=== PATIENT | female | born 1955 | race African-American/Black ===

== ENCOUNTER 2021-12-01 19:12 | Inpatient (IN) | payer OTHER ==
[2021-12-01] MEDS ORDERED: Lorazepam 2 MG/ML VIAL ONE (20:09)
[2021-12-01] MEDS ORDERED: cefTRIAXone\\ROCEPHIN 2 GM VIAL ONE (20:10)
[2021-12-01 20:14] LABS: Magnesium 2.2 mg/dL (1.6-2.6)
[2021-12-01 20:16] LABS: #Eosinphils 0.1 10x3/uL (0.0-0.5); #Monocytes 2.2 10x3/uL (0.0-1.1); #Neutrophils 12.7 10x3/uL (1.5-8.4); %Basophils 0.2 % (0.0-2.0); %Eosinophils 0.3 % (0.0-6.0); %Lymphocytes 9.1 % (18.0-47.0); %Monocytes 13.3 % (0.0-10.0); %Neutrophils 76.5 % (40.0-75.0); Hemoglobin 14.2 g/dL (12.0-15.5); Mean Corpuscular HGB CONC 33.4 g/dL (32.0-36.0); Mean Corpuscular Hemoglobin 28.3 pg (27.0-33.0); Mean Corpuscular Volume 84.8 fl (81.6-98.3); Mean Platelet Volume 12.7 fl (7.4-10.4); Platelet Count 175 10x3/uL (150-450); RBC Distribution Width 16.2 % (11.5-14.5); Red Blood Cell (RBC) Count 5.01 10x6/uL (3.90-5.03); White Blood Cell (WBC) Count 16.6 10x3/uL (3.5-10.5)
[2021-12-01 20:17] LABS: ALT (SGPT) 13 U/L (8-55); AST (SGOT) 26 U/L (5-34); Acetaminophen Less than 10.0 mcg/mL (10.0-30.0); Albumin 3.6 g/dL (3.4-4.8); Alcohol Less than 10 mg/dL (Less than 10); Alkaline Phosphatase 76 U/L (40-110); Anion Gap 17 mmol/L (10-20); BUN (Urea Nitrogen) 30 mg/dL (9.8-20.1); Bilirubin, Total 0.7 mg/dL (0.2-1.2); Calc. Creatinine Clearance 0 mL/min (70-130); Calcium 10.1 mg/dL (7.8-10.44); Carbon Dioxide 26 mmol/L (23-31); Chloride 107 mmol/L (98-107); Estimated GFR 55; Globulin 4.8 g/dL (2.4-3.5); Glucose 150 mg/dL (80-115); Lipase 20 U/L (8-78); Potassium 4.2 mmol/L (3.5-5.1); Protein, Total 8.4 g/dL (5.8-8.1); Salicylate Less than 8.0 mg/dL (15.0-30.0); Sodium 146 mmol/L (136-145)
[2021-12-01 21:01] LABS: Bilirubin Neg (Negative); Blood, Urine 25 (Negative); Clarity Clear (Clear); Glucose, Urine (Dipstick) Normal (Negative); Ketone, Urine 15 mg/dL (Negative); Leukocyte 100 (Negative); Nitrite Positive (Negative); Protein, Urine (Dipstick) 30 mg/dl (Neg-Trace)
[2021-12-01 21:08] LABS: Amphetamine Not Detected (NotDetected); Barbiturates Screen Not Detected (NotDetected); Benzodiazepine Screen Not Detected (NotDetected); Cocaine Metabolite Screen Not Detected (NotDetected); Methadone Not Detected (NotDetected); Methamphetamine Not Detected (NotDetected); Opiate Screen Not Detected (NotDetected); Oxycodone Screen Not Detected (NotDetected); Phencyclidine (PCP) Not Detected (NotDetected); THC/Cannabinoid Screen Not Detected (NotDetected); Tricyclic Screen Not Detected (NotDetected)
[2021-12-01 21:13] LABS: RBC/HPF 0-3 HPF (0-3); Squamous Epithelial 0-3 HPF (0-3)
[2021-12-01 21:14] LABS: Bacteria/HPF 2+ HPF (None Seen)
[2021-12-01 21:52] LABS: SARS-CoV-2 NAA Rapid Test Not Detected (NotDetected)
[2021-12-01] MEDS ORDERED: Calcium Carbonate 500 MG ChewTAB PO PRN (22:26)
[2021-12-01] MEDS ORDERED: Guaifenesin DM 100-10/5 ML UDCUP PO PRN (22:26)
[2021-12-01] MEDS ORDERED: Ondansetron PF 4 MG/2 ML Vial IVP PRN (22:26)
[2021-12-01] MEDS ORDERED: Vancomycin 1 GM VIAL ONE (22:30)
[2021-12-01] MEDS ORDERED: Piperacillin/Tazobactam 3.375 GM in Sodium Chloride 0.9% 100 ML IVPB SCH (22:30)
[2021-12-01] MEDS ORDERED: Pharmacy to Dose ABX/VANCOMYCIN IVPB PRN (22:35)
[2021-12-01] MEDS ORDERED: Piperacillin/Tazobactam 3.375 GM VIAL ONE (23:35)
[2021-12-01] MEDS ORDERED: Ketorolac Tromethamine 30 MG/ML VIAL ONE (23:35)
[2021-12-02] MEDS ORDERED: Ketorolac Tromethamine 30 MG/ML VIAL IVP SCH (01:00)
[2021-12-02] MEDS ORDERED: Piperacillin/Tazobactam 3.375 GM in Sodium Chloride 0.9% 100 ML IVPB SCH (01:00)
[2021-12-02] MEDS ORDERED: Lactated Ringer's 1,000 ML IV SCH ×2 (01:00→14:20)
[2021-12-02] MEDS: Lactated Ringer's 1,000 ML IV SCH ×2 (02:30→10:35)
[2021-12-02 05:34] LABS: Hemoglobin 11.1 g/dL (12.0-15.5); Mean Corpuscular HGB CONC 32.9 g/dL (32.0-36.0); Mean Corpuscular Hemoglobin 27.7 pg (27.0-33.0); Mean Platelet Volume 12.2 fl (7.4-10.4); Platelet Count 130 10x3/uL (150-450); RBC Distribution Width 15.9 % (11.5-14.5); Red Blood Cell (RBC) Count 4.01 10x6/uL (3.90-5.03); White Blood Cell (WBC) Count 16.8 10x3/uL (3.5-10.5)
[2021-12-02 05:37] LABS: Lactic Acid 1.4 mmol/L (0.5-2.2)
[2021-12-02 05:48] LABS: Anion Gap 14 mmol/L (10-20); BUN (Urea Nitrogen) 30 mg/dL (9.8-20.1); CK (CPK) 851 U/L (29-168); Calc. Creatinine Clearance 0 mL/min (70-130); Calcium 8.6 mg/dL (7.8-10.44); Carbon Dioxide 23 mmol/L (23-31); Chloride 114 mmol/L (98-107); Estimated GFR 75; Glucose 138 mg/dL (80-115); Potassium 3.8 mmol/L (3.5-5.1); Sodium 147 mmol/L (136-145)
[2021-12-02] MEDS ORDERED: Piperacillin/Tazobactam 3.375 GM VIAL ONE (05:56)
[2021-12-02 05:57] LABS: Free T4 (Free Thyroxine) 0.55 ng/dL (0.70-1.48)
[2021-12-02] MEDS: Piperacillin/Tazobactam 3.375 GM in Sodium Chloride 0.9% 100 ML IVPB SCH ×3 (06:10→22:13)
[2021-12-02 06:42] LABS: MDiff Complete? YES; Platelet Morphology Comment Appears Decreased
[2021-12-02 06:50] LABS: Band 7 % (5-11); Lymphocytes 8 % (21-51); Metamyelocyte 2 % (0-0); Monocytes 12 % (0-10); Neutrophil 71 % (42-75)
[2021-12-02] MEDS ORDERED: OLANZapine 5 MG TAB PO SCH (09:00)
[2021-12-02] MEDS ORDERED: Divalproex Sodium 250 MG (DR) TAB PO SCH (09:00)
[2021-12-02] MEDS ORDERED: Senokot S 8.6-50 MG TAB PO SCH (09:00)
[2021-12-02] MEDS: Enoxaparin Sodium 40 MG/0.4 ML SYRINGE SC SCH (09:48)
[2021-12-02] MEDS: Vancomycin HCl 750 MG in Sodium Chloride 0.9% 250 ML 250 ML IVPB SCH ×2 (09:48→22:24)
[2021-12-02 10:05] VITALS: BMI 22.4
[2021-12-02] MEDS ORDERED: cloNIDine 0.1mg/24 Hour PATCH TD SCH (12:00)
[2021-12-02] MEDS: OLANZapine 2.5 MG TAB PO SCH (15:04)
[2021-12-02] MEDS: Docusate 100 MG CAP PO SCH (22:15)
[2021-12-02] MEDS: Methimazole 5 MG TAB PO SCH (22:16)
[2021-12-02] MEDS: OLANZapine 5 MG TAB PO SCH (22:16)
[2021-12-03] MEDS: Piperacillin/Tazobactam 3.375 GM in Sodium Chloride 0.9% 100 ML IVPB SCH ×3 (05:39→21:26)
[2021-12-03 06:19] LABS: #Monocytes 1.4 10x3/uL (0.0-1.1); #Neutrophils 9.1 10x3/uL (1.5-8.4); %Basophils 0.3 % (0.0-2.0); %Eosinophils 0.1 % (0.0-6.0); %Monocytes 11.7 % (0.0-10.0); %Neutrophils 75.6 % (40.0-75.0); Hemoglobin 10.3 g/dL (12.0-15.5); Mean Corpuscular HGB CONC 32.8 g/dL (32.0-36.0); Mean Corpuscular Hemoglobin 27.8 pg (27.0-33.0); Mean Corpuscular Volume 84.9 fl (81.6-98.3); Mean Platelet Volume 10.9 fl (7.4-10.4); Platelet Count 142 10x3/uL (150-450); RBC Distribution Width 15.9 % (11.5-14.5); White Blood Cell (WBC) Count 12.1 10x3/uL (3.5-10.5)
[2021-12-03 06:39] LABS: Anion Gap 12 mmol/L (10-20); BUN (Urea Nitrogen) 27 mg/dL (9.8-20.1); Calc. Creatinine Clearance 75 mL/min (70-130); Calcium 8.7 mg/dL (7.8-10.44); Carbon Dioxide 24 mmol/L (23-31); Chloride 118 mmol/L (98-107); Estimated GFR 92; Glucose 72 mg/dL (80-115); Potassium 3.6 mmol/L (3.5-5.1); Sodium 150 mmol/L (136-145)
[2021-12-03] MEDS: Dextrose 5 %-0.45 % NaCl 1,000 ML IV SCH (06:56)
[2021-12-03] MEDS: Enoxaparin Sodium 40 MG/0.4 ML SYRINGE SC SCH (08:49)
[2021-12-03] MEDS: Docusate 100 MG CAP PO SCH ×2 (08:50→20:39)
[2021-12-03] MEDS: OLANZapine 2.5 MG TAB PO SCH ×2 (08:50→14:28)
[2021-12-03] MEDS: Ascorbic Acid 500 mg Chewable Tablet PO SCH (08:50)
[2021-12-03] MEDS: Ferrous Sulfate 325 MG TAB PO SCH (08:50)
[2021-12-03] MEDS ORDERED: NIFEdipine XL 60 MG TAB PO SCH (09:00)
[2021-12-03 09:09] LABS: Vancomycin, Trough 13.7 ug/mL
[2021-12-03] MEDS ORDERED: Vancomycin HCl 1 GM in Sodium Chloride 0.9% 250 ML 250 ML IVPB SCH (10:00)
[2021-12-03] MEDS: Methimazole 5 MG TAB PO SCH ×2 (12:50→20:39)
[2021-12-03] MEDS: OLANZapine 5 MG TAB PO SCH (20:40)
[2021-12-04] MEDS: Dextrose 5 %-0.45 % NaCl 1,000 ML IV SCH (02:29)
[2021-12-04 05:52] LABS: Anion Gap 11 mmol/L (10-20); BUN (Urea Nitrogen) 16 mg/dL (9.8-20.1); Calc. Creatinine Clearance 77 mL/min (70-130); Calcium 8.3 mg/dL (7.8-10.44); Carbon Dioxide 24 mmol/L (23-31); Chloride 117 mmol/L (98-107); Estimated GFR 95; Glucose 88 mg/dL (80-115); Magnesium 1.8 mg/dL (1.6-2.6); Potassium 3.5 mmol/L (3.5-5.1); Sodium 148 mmol/L (136-145)
[2021-12-04 06:04] LABS: #Basophils 0.1 10x3/uL (0.0-0.2); #Eosinphils 0.1 10x3/uL (0.0-0.5); #Monocytes 0.9 10x3/uL (0.0-1.1); #Neutrophils 4.1 10x3/uL (1.5-8.4); %Basophils 0.8 % (0.0-2.0); %Eosinophils 0.9 % (0.0-6.0); %Lymphocytes 19.6 % (18.0-47.0); %Monocytes 13.9 % (0.0-10.0); %Neutrophils 64.2 % (40.0-75.0); Hemoglobin 9.9 g/dL (12.0-15.5); Mean Corpuscular HGB CONC 33.4 g/dL (32.0-36.0); Mean Corpuscular Hemoglobin 28.3 pg (27.0-33.0); Mean Corpuscular Volume 84.6 fl (81.6-98.3); Mean Platelet Volume 11.6 fl (7.4-10.4); Platelet Count 165 10x3/uL (150-450); RBC Distribution Width 15.7 % (11.5-14.5); White Blood Cell (WBC) Count 6.3 10x3/uL (3.5-10.5)
[2021-12-04] MEDS: Piperacillin/Tazobactam 3.375 GM in Sodium Chloride 0.9% 100 ML IVPB SCH ×3 (06:05→22:36)
[2021-12-04] MEDS: Methimazole 5 MG TAB PO SCH ×2 (08:03→20:47)
[2021-12-04] MEDS: Ferrous Sulfate 325 MG TAB PO SCH (08:04)
[2021-12-04] MEDS: Ascorbic Acid 500 mg Chewable Tablet PO SCH (08:04)
[2021-12-04] MEDS: Docusate 100 MG CAP PO SCH ×2 (08:04→20:47)
[2021-12-04] MEDS: OLANZapine 2.5 MG TAB PO SCH ×2 (08:04→13:37)
[2021-12-04] MEDS: Enoxaparin Sodium 40 MG/0.4 ML SYRINGE SC SCH (08:04)
[2021-12-04] MEDS ORDERED: NIFEdipine XL 30 MG TAB PO SCH (13:15)
[2021-12-04] MEDS: OLANZapine 5 MG TAB PO SCH (20:47)
[2021-12-05] MEDS: Dextrose 5 %-0.45 % NaCl 1,000 ML IV SCH (02:13)
[2021-12-05] MEDS: Piperacillin/Tazobactam 3.375 GM in Sodium Chloride 0.9% 100 ML IVPB SCH ×3 (05:21→21:13)
[2021-12-05 07:59] LABS: Anion Gap 14 mmol/L (10-20); BUN (Urea Nitrogen) 9 mg/dL (9.8-20.1); Calc. Creatinine Clearance 77 mL/min (70-130); Calcium 8.6 mg/dL (7.8-10.44); Carbon Dioxide 23 mmol/L (23-31); Chloride 109 mmol/L (98-107); Estimated GFR 95; Glucose 82 mg/dL (80-115); Magnesium 1.7 mg/dL (1.6-2.6); Potassium 3.8 mmol/L (3.5-5.1); Sodium 142 mmol/L (136-145)
[2021-12-05] MEDS ORDERED: NIFEdipine XL 60 MG TAB PO SCH (09:00)
[2021-12-05] MEDS: Methimazole 5 MG TAB PO SCH ×2 (09:10→21:12)
[2021-12-05] MEDS: NIFEdipine XL 30 MG TAB PO SCH (09:10)
[2021-12-05] MEDS: Ascorbic Acid 500 mg Chewable Tablet PO SCH (09:10)
[2021-12-05] MEDS: Docusate 100 MG CAP PO SCH ×2 (09:10→21:12)
[2021-12-05] MEDS: OLANZapine 2.5 MG TAB PO SCH ×2 (09:11→14:22)
[2021-12-05] MEDS: Ferrous Sulfate 325 MG TAB PO SCH (09:11)
[2021-12-05] MEDS: Enoxaparin Sodium 40 MG/0.4 ML SYRINGE SC SCH (09:11)
[2021-12-05] MEDS: OLANZapine 5 MG TAB PO SCH (21:13)
[2021-12-06] MEDS: Piperacillin/Tazobactam 3.375 GM in Sodium Chloride 0.9% 100 ML IVPB SCH ×3 (05:12→21:35)
[2021-12-06 06:20] LABS: Anion Gap 13 mmol/L (10-20); BUN (Urea Nitrogen) 11 mg/dL (9.8-20.1); Calc. Creatinine Clearance 70 mL/min (70-130); Calcium 8.7 mg/dL (7.8-10.44); Carbon Dioxide 26 mmol/L (23-31); Chloride 109 mmol/L (98-107); Estimated GFR 85; Glucose 71 mg/dL (80-115); Magnesium 1.9 mg/dL (1.6-2.6); Sodium 144 mmol/L (136-145)
[2021-12-06] MEDS: OLANZapine 2.5 MG TAB PO SCH ×2 (11:41→13:35)
[2021-12-06] MEDS: Enoxaparin Sodium 40 MG/0.4 ML SYRINGE SC SCH (11:43)
[2021-12-06] MEDS: Methimazole 5 MG TAB PO SCH ×2 (11:43→22:23)
[2021-12-06] MEDS: Ascorbic Acid 500 mg Chewable Tablet PO SCH (11:44)
[2021-12-06] MEDS: Ferrous Sulfate 325 MG TAB PO SCH (11:44)
[2021-12-06] MEDS: NIFEdipine XL 30 MG TAB PO SCH (11:54)
[2021-12-06] MEDS ORDERED: Polyethylene Glycol 3350 17 GM Packet PO SCH (12:00)
[2021-12-06] MEDS ORDERED: Valproate Sodium 250 mg/5 ml UD Cup PO SCH (12:00)
[2021-12-06] MEDS ORDERED: Amlodipine 5 MG TAB PO SCH (12:00)
[2021-12-06] MEDS: Docusate 100 MG CAP PO SCH (13:03)
[2021-12-06] MEDS: Valproate Sodium 250 mg/5 ml UD Cup PO SCH (21:36)
[2021-12-06] MEDS: OLANZapine 5 MG TAB PO SCH (21:36)
[2021-12-07] MEDS: Piperacillin/Tazobactam 3.375 GM in Sodium Chloride 0.9% 100 ML IVPB SCH ×3 (05:18→22:26)
[2021-12-07 06:07] LABS: Anion Gap 13 mmol/L (10-20); BUN (Urea Nitrogen) 10 mg/dL (9.8-20.1); Calc. Creatinine Clearance 66 mL/min (70-130); Calcium 8.9 mg/dL (7.8-10.44); Carbon Dioxide 27 mmol/L (23-31); Chloride 108 mmol/L (98-107); Estimated GFR 79; Glucose 71 mg/dL (80-115); Magnesium 2.7 mg/dL (1.6-2.6); Sodium 144 mmol/L (136-145)
[2021-12-07] MEDS: Ascorbic Acid 500 mg Chewable Tablet PO SCH (09:05)
[2021-12-07] MEDS: Ferrous Sulfate 325 MG TAB PO SCH (09:05)
[2021-12-07] MEDS: OLANZapine 2.5 MG TAB PO SCH ×2 (09:05→14:05)
[2021-12-07] MEDS: Methimazole 5 MG TAB PO SCH ×2 (09:05→20:47)
[2021-12-07] MEDS: Amlodipine 5 MG TAB PO SCH (09:06)
[2021-12-07] MEDS: Polyethylene Glycol 3350 17 GM Packet PO SCH (09:07)
[2021-12-07] MEDS: Enoxaparin Sodium 40 MG/0.4 ML SYRINGE SC SCH (09:07)
[2021-12-07] MEDS: Valproate Sodium 250 mg/5 ml UD Cup PO SCH ×2 (09:07→20:47)
[2021-12-07] MEDS: OLANZapine 5 MG TAB PO SCH (20:47)
[2021-12-08 04:27] LABS: Hemoglobin 10.6 g/dL (12.0-15.5); Mean Corpuscular HGB CONC 33.5 g/dL (32.0-36.0); Mean Corpuscular Hemoglobin 28.2 pg (27.0-33.0); Platelet Count 256 10x3/uL (150-450); RBC Distribution Width 15.8 % (11.5-14.5); Red Blood Cell (RBC) Count 3.76 10x6/uL (3.90-5.03); White Blood Cell (WBC) Count 5.7 10x3/uL (3.5-10.5)
[2021-12-08 04:42] LABS: Anion Gap 10 mmol/L (10-20); BUN (Urea Nitrogen) 9 mg/dL (9.8-20.1); Calc. Creatinine Clearance 64 mL/min (70-130); Calcium 8.6 mg/dL (7.8-10.44); Carbon Dioxide 29 mmol/L (23-31); Chloride 107 mmol/L (98-107); Estimated GFR 75; Glucose 76 mg/dL (80-115); Magnesium 1.9 mg/dL (1.6-2.6); Potassium 4.4 mmol/L (3.5-5.1); Sodium 142 mmol/L (136-145)
[2021-12-08 05:10] LABS: MDiff Complete? YES
[2021-12-08 05:14] LABS: Band 1 % (5-11); Eosinophils 4 % (0-10); Lymphocytes 38 % (21-51); Monocytes 13 % (0-10); Myelocyte 2 % (0-0); Neutrophil 39 % (42-75); Reactive Lymphocytes 3 % (0-10)
[2021-12-08 05:15] LABS: Platelet Morphology Comment Appears Adequate; RBC Morphology Normal
[2021-12-08] MEDS: Piperacillin/Tazobactam 3.375 GM in Sodium Chloride 0.9% 100 ML IVPB SCH ×3 (06:00→21:24)
[2021-12-08] MEDS: Amlodipine 5 MG TAB PO SCH (08:16)
[2021-12-08] MEDS: Ascorbic Acid 500 mg Chewable Tablet PO SCH (08:16)
[2021-12-08] MEDS: Ferrous Sulfate 325 MG TAB PO SCH (08:16)
[2021-12-08] MEDS: Methimazole 5 MG TAB PO SCH ×2 (08:16→21:25)
[2021-12-08] MEDS: OLANZapine 2.5 MG TAB PO SCH ×2 (08:17→14:55)
[2021-12-08] MEDS: Valproate Sodium 250 mg/5 ml UD Cup PO SCH ×2 (08:17→21:25)
[2021-12-08] MEDS: Polyethylene Glycol 3350 17 GM Packet PO SCH (08:17)
[2021-12-08] MEDS: Enoxaparin Sodium 40 MG/0.4 ML SYRINGE SC SCH (08:17)
[2021-12-08] MEDS: OLANZapine 5 MG TAB PO SCH (21:25)
[2021-12-09 04:51] LABS: Anion Gap 11 mmol/L (10-20); BUN (Urea Nitrogen) 7 mg/dL (9.8-20.1); Calc. Creatinine Clearance 66 mL/min (70-130); Calcium 9.4 mg/dL (7.8-10.44); Carbon Dioxide 29 mmol/L (23-31); Chloride 106 mmol/L (98-107); Estimated GFR 79; Glucose 84 mg/dL (80-115); Magnesium 1.9 mg/dL (1.6-2.6); Potassium 4.6 mmol/L (3.5-5.1); Sodium 141 mmol/L (136-145)
[2021-12-09] MEDS: Piperacillin/Tazobactam 3.375 GM in Sodium Chloride 0.9% 100 ML IVPB SCH ×3 (06:02→21:52)
[2021-12-09] MEDS: Polyethylene Glycol 3350 17 GM Packet PO SCH (10:22)
[2021-12-09] MEDS: Enoxaparin Sodium 40 MG/0.4 ML SYRINGE SC SCH (10:23)
[2021-12-09] MEDS: Methimazole 5 MG TAB PO SCH ×2 (10:23→21:51)
[2021-12-09] MEDS: OLANZapine 2.5 MG TAB PO SCH ×2 (10:23→14:23)
[2021-12-09] MEDS: Amlodipine 5 MG TAB PO SCH (10:23)
[2021-12-09] MEDS: Ferrous Sulfate 325 MG TAB PO SCH (10:23)
[2021-12-09] MEDS: Ascorbic Acid 500 mg Chewable Tablet PO SCH (10:23)
[2021-12-09] MEDS: Valproate Sodium 250 mg/5 ml UD Cup PO SCH ×2 (10:29→21:51)
[2021-12-09] MEDS: OLANZapine 5 MG TAB PO SCH (21:51)
[2021-12-10] MEDS: Piperacillin/Tazobactam 3.375 GM in Sodium Chloride 0.9% 100 ML IVPB SCH ×3 (06:08→21:50)
[2021-12-10] MEDS: OLANZapine 2.5 MG TAB PO SCH ×2 (12:31→14:15)
[2021-12-10] MEDS: Polyethylene Glycol 3350 17 GM Packet PO SCH (12:31)
[2021-12-10] MEDS: Amlodipine 5 MG TAB PO SCH (12:31)
[2021-12-10] MEDS: Methimazole 5 MG TAB PO SCH ×2 (12:31→21:50)
[2021-12-10] MEDS: Ferrous Sulfate 325 MG TAB PO SCH (12:32)
[2021-12-10] MEDS: Ascorbic Acid 500 mg Chewable Tablet PO SCH (12:33)
[2021-12-10] MEDS: Valproate Sodium 250 mg/5 ml UD Cup PO SCH ×2 (12:33→21:49)
[2021-12-10] MEDS: Enoxaparin Sodium 40 MG/0.4 ML SYRINGE SC SCH (12:33)
[2021-12-10] MEDS: OLANZapine 5 MG TAB PO SCH (21:50)
[2021-12-11] MEDS: Piperacillin/Tazobactam 3.375 GM in Sodium Chloride 0.9% 100 ML IVPB SCH (05:25)
[2021-12-11] MEDS: Ferrous Sulfate 325 MG TAB PO SCH (11:32)
[2021-12-11] MEDS: cloNIDine 0.1mg/24 Hour PATCH TD SCH (11:32)
[2021-12-11] MEDS: OLANZapine 2.5 MG TAB PO SCH ×2 (11:32→18:21)
[2021-12-11] MEDS: Valproate Sodium 250 mg/5 ml UD Cup PO SCH ×2 (11:32→21:34)
[2021-12-11] MEDS: Amlodipine 5 MG TAB PO SCH (12:54)
[2021-12-11] MEDS: Ascorbic Acid 500 mg Chewable Tablet PO SCH (12:54)
[2021-12-11] MEDS: Methimazole 5 MG TAB PO SCH ×2 (12:55→21:19)
[2021-12-11] MEDS: Enoxaparin Sodium 40 MG/0.4 ML SYRINGE SC SCH (12:55)
[2021-12-11] MEDS: Polyethylene Glycol 3350 17 GM Packet PO SCH (12:56)
[2021-12-11] MEDS: Amoxicillin/Potassium Clav 875 MG TAB PO SCH (21:18)
[2021-12-11] MEDS: OLANZapine 5 MG TAB PO SCH (21:18)
[2021-12-12] MEDS: Enoxaparin Sodium 40 MG/0.4 ML SYRINGE SC SCH (09:53)
[2021-12-12] MEDS: Methimazole 5 MG TAB PO SCH ×2 (09:54→21:12)
[2021-12-12] MEDS: Ascorbic Acid 500 mg Chewable Tablet PO SCH (09:54)
[2021-12-12] MEDS: Ferrous Sulfate 325 MG TAB PO SCH (09:54)
[2021-12-12] MEDS: OLANZapine 2.5 MG TAB PO SCH ×2 (09:54→14:42)
[2021-12-12] MEDS: Amoxicillin/Potassium Clav 875 MG TAB PO SCH ×2 (09:54→21:12)
[2021-12-12] MEDS: Valproate Sodium 250 mg/5 ml UD Cup PO SCH ×2 (09:54→21:12)
[2021-12-12] MEDS: Amlodipine 5 MG TAB PO SCH (09:54)
[2021-12-12] MEDS: Polyethylene Glycol 3350 17 GM Packet PO SCH (09:55)
[2021-12-12] MEDS: OLANZapine 5 MG TAB PO SCH (21:11)
[2021-12-13] MEDS: Valproate Sodium 250 mg/5 ml UD Cup PO SCH ×2 (10:55→21:34)
[2021-12-13] MEDS: Acetaminophen 325 MG TAB PO PRN (10:55)
[2021-12-13] MEDS: OLANZapine 2.5 MG TAB PO SCH ×2 (10:56→13:08)
[2021-12-13] MEDS: Methimazole 5 MG TAB PO SCH ×2 (10:56→21:34)
[2021-12-13] MEDS: Enoxaparin Sodium 40 MG/0.4 ML SYRINGE SC SCH (10:56)
[2021-12-13] MEDS: Amlodipine 5 MG TAB PO SCH (10:56)
[2021-12-13] MEDS: Amoxicillin/Potassium Clav 875 MG TAB PO SCH ×2 (10:57→21:34)
[2021-12-13] MEDS: Polyethylene Glycol 3350 17 GM Packet PO SCH (10:57)
[2021-12-13] MEDS: Ferrous Sulfate 325 MG TAB PO SCH (10:57)
[2021-12-13] MEDS: Ascorbic Acid 500 mg Chewable Tablet PO SCH (10:57)
[2021-12-13] MEDS: OLANZapine 5 MG TAB PO SCH (21:34)
[2021-12-14] MEDS: Amoxicillin/Potassium Clav 875 MG TAB PO SCH ×2 (08:57→22:08)
[2021-12-14] MEDS: Polyethylene Glycol 3350 17 GM Packet PO SCH (08:57)
[2021-12-14] MEDS: Amlodipine 5 MG TAB PO SCH (08:57)
[2021-12-14] MEDS: Valproate Sodium 250 mg/5 ml UD Cup PO SCH ×2 (08:57→22:08)
[2021-12-14] MEDS: Enoxaparin Sodium 40 MG/0.4 ML SYRINGE SC SCH (08:57)
[2021-12-14] MEDS: Methimazole 5 MG TAB PO SCH ×2 (08:58→22:08)
[2021-12-14] MEDS: OLANZapine 2.5 MG TAB PO SCH ×2 (08:58→13:40)
[2021-12-14] MEDS: Acetaminophen 325 MG TAB PO PRN (08:58)
[2021-12-14] MEDS: Ascorbic Acid 500 mg Chewable Tablet PO SCH (08:58)
[2021-12-14] MEDS: Ferrous Sulfate 325 MG TAB PO SCH (08:59)
[2021-12-14] MEDS: OLANZapine 5 MG TAB PO SCH (22:08)
[2021-12-15 06:18] LABS: #Monocytes 0.5 10x3/uL (0.0-1.1); #Neutrophils 5.8 10x3/uL (1.5-8.4); %Basophils 0.4 % (0.0-2.0); %Eosinophils 0.2 % (0.0-6.0); %Lymphocytes 23.1 % (18.0-47.0); %Monocytes 5.9 % (0.0-10.0); %Neutrophils 69.9 % (40.0-75.0); Hemoglobin 12.6 g/dL (12.0-15.5); Mean Corpuscular HGB CONC 33.3 g/dL (32.0-36.0); Mean Corpuscular Hemoglobin 28.1 pg (27.0-33.0); Mean Corpuscular Volume 84.2 fl (81.6-98.3); Mean Platelet Volume 11.7 fl (7.4-10.4); Platelet Count 445 10x3/uL (150-450); RBC Distribution Width 16.4 % (11.5-14.5); Red Blood Cell (RBC) Count 4.49 10x6/uL (3.90-5.03); White Blood Cell (WBC) Count 8.4 10x3/uL (3.5-10.5)
[2021-12-15 07:29] LABS: Anion Gap 15 mmol/L (10-20); BUN (Urea Nitrogen) 19 mg/dL (9.8-20.1); Calc. Creatinine Clearance 62 mL/min (70-130); Calcium 9.7 mg/dL (7.8-10.44); Carbon Dioxide 26 mmol/L (23-31); Chloride 101 mmol/L (98-107); Estimated GFR 73; Glucose 116 mg/dL (80-115); Potassium 4.5 mmol/L (3.5-5.1); Sodium 137 mmol/L (136-145)
[2021-12-15] MEDS: Polyethylene Glycol 3350 17 GM Packet PO SCH (10:57)
[2021-12-15] MEDS: Amlodipine 5 MG TAB PO SCH (12:23)
[2021-12-15] MEDS: Amoxicillin/Potassium Clav 875 MG TAB PO SCH ×2 (12:23→21:25)
[2021-12-15] MEDS: Valproate Sodium 250 mg/5 ml UD Cup PO SCH ×2 (12:24→21:24)
[2021-12-15] MEDS: Ascorbic Acid 500 mg Chewable Tablet PO SCH (12:24)
[2021-12-15] MEDS: Methimazole 5 MG TAB PO SCH ×2 (12:24→21:25)
[2021-12-15] MEDS: Enoxaparin Sodium 40 MG/0.4 ML SYRINGE SC SCH (12:24)
[2021-12-15] MEDS: Ferrous Sulfate 325 MG TAB PO SCH (12:24)
[2021-12-15] MEDS: OLANZapine 2.5 MG TAB PO SCH ×2 (12:24→14:33)
[2021-12-15] MEDS: OLANZapine 5 MG TAB PO SCH (21:25)
[2021-12-16] MEDS: Ascorbic Acid 500 mg Chewable Tablet PO SCH (10:06)
[2021-12-16] MEDS: Enoxaparin Sodium 40 MG/0.4 ML SYRINGE SC SCH (10:06)
[2021-12-16] MEDS: Amoxicillin/Potassium Clav 875 MG TAB PO SCH ×2 (10:06→21:07)
[2021-12-16] MEDS: Amlodipine 5 MG TAB PO SCH (10:06)
[2021-12-16] MEDS: Valproate Sodium 250 mg/5 ml UD Cup PO SCH ×2 (10:07→21:11)
[2021-12-16] MEDS: OLANZapine 2.5 MG TAB PO SCH ×2 (10:07→14:03)
[2021-12-16] MEDS: Methimazole 5 MG TAB PO SCH ×2 (10:07→21:11)
[2021-12-16] MEDS: Ferrous Sulfate 325 MG TAB PO SCH (10:07)
[2021-12-16] MEDS: Polyethylene Glycol 3350 17 GM Packet PO SCH (10:07)
[2021-12-16] MEDS: OLANZapine 5 MG TAB PO SCH (21:07)
[2021-12-17] MEDS: Valproate Sodium 250 mg/5 ml UD Cup PO SCH ×2 (08:57→21:48)
[2021-12-17] MEDS: Enoxaparin Sodium 40 MG/0.4 ML SYRINGE SC SCH (08:57)
[2021-12-17] MEDS: Amoxicillin/Potassium Clav 875 MG TAB PO SCH (08:58)
[2021-12-17] MEDS: Ascorbic Acid 500 mg Chewable Tablet PO SCH (08:58)
[2021-12-17] MEDS: Methimazole 5 MG TAB PO SCH ×2 (08:58→21:46)
[2021-12-17] MEDS: OLANZapine 2.5 MG TAB PO SCH ×2 (08:58→15:30)
[2021-12-17] MEDS: Amlodipine 5 MG TAB PO SCH (08:58)
[2021-12-17] MEDS: Ferrous Sulfate 325 MG TAB PO SCH (08:59)
[2021-12-17] MEDS: Polyethylene Glycol 3350 17 GM Packet PO SCH (10:59)
[2021-12-17 13:00] LABS: SARS-CoV-2 IgG Spike Ab Interp Reactive (NonReactive)
[2021-12-17] MEDS: OLANZapine 5 MG TAB PO SCH (21:46)
[2021-12-18] MEDS: Enoxaparin Sodium 40 MG/0.4 ML SYRINGE SC SCH (11:03)
[2021-12-18] MEDS: Ascorbic Acid 500 mg Chewable Tablet PO SCH (11:03)
[2021-12-18] MEDS: Ferrous Sulfate 325 MG TAB PO SCH (11:03)
[2021-12-18] MEDS: cloNIDine 0.1mg/24 Hour PATCH TD SCH (11:04)
[2021-12-18] MEDS: Polyethylene Glycol 3350 17 GM Packet PO SCH (11:04)
[2021-12-18] MEDS: Methimazole 5 MG TAB PO SCH ×2 (11:04→21:52)
[2021-12-18] MEDS: Amlodipine 5 MG TAB PO SCH (11:05)
[2021-12-18] MEDS: Valproate Sodium 250 mg/5 ml UD Cup PO SCH ×2 (11:11→21:52)
[2021-12-18] MEDS: OLANZapine 2.5 MG TAB PO SCH ×2 (11:11→16:00)
[2021-12-18] MEDS: OLANZapine 5 MG TAB PO SCH (21:52)
[2021-12-19] MEDS: Valproate Sodium 250 mg/5 ml UD Cup PO SCH ×2 (09:21→21:47)
[2021-12-19] MEDS: Amlodipine 5 MG TAB PO SCH (09:21)
[2021-12-19] MEDS: Ferrous Sulfate 325 MG TAB PO SCH (09:21)
[2021-12-19] MEDS: Ascorbic Acid 500 mg Chewable Tablet PO SCH (09:21)
[2021-12-19] MEDS: OLANZapine 2.5 MG TAB PO SCH ×2 (09:21→14:43)
[2021-12-19] MEDS: Enoxaparin Sodium 40 MG/0.4 ML SYRINGE SC SCH (09:21)
[2021-12-19] MEDS: Polyethylene Glycol 3350 17 GM Packet PO SCH (09:22)
[2021-12-19] MEDS: Methimazole 5 MG TAB PO SCH ×2 (09:25→21:48)
[2021-12-19] MEDS: OLANZapine 5 MG TAB PO SCH (21:47)
[2021-12-20] MEDS: OLANZapine 2.5 MG TAB PO SCH ×2 (09:48→13:28)
[2021-12-20] MEDS: Methimazole 5 MG TAB PO SCH ×2 (09:51→20:05)
[2021-12-20] MEDS: Valproate Sodium 250 mg/5 ml UD Cup PO SCH ×3 (10:28→21:30)
[2021-12-20] MEDS: Polyethylene Glycol 3350 17 GM Packet PO SCH (10:29)
[2021-12-20] MEDS: Amlodipine 5 MG TAB PO SCH (10:32)
[2021-12-20] MEDS: Ferrous Sulfate 325 MG TAB PO SCH (10:32)
[2021-12-20] MEDS: Enoxaparin Sodium 40 MG/0.4 ML SYRINGE SC SCH (10:32)
[2021-12-20] MEDS: Ascorbic Acid 500 mg Chewable Tablet PO SCH (10:32)
[2021-12-20] MEDS: OLANZapine 5 MG TAB PO SCH (20:05)
[2021-12-21] MEDS: Ferrous Sulfate 325 MG TAB PO SCH (08:41)
[2021-12-21] MEDS: Ascorbic Acid 500 mg Chewable Tablet PO SCH (08:41)
[2021-12-21] MEDS: OLANZapine 2.5 MG TAB PO SCH ×2 (08:41→13:22)
[2021-12-21] MEDS: Amlodipine 5 MG TAB PO SCH (08:41)
[2021-12-21] MEDS: Polyethylene Glycol 3350 17 GM Packet PO SCH (08:42)
[2021-12-21] MEDS: Enoxaparin Sodium 40 MG/0.4 ML SYRINGE SC SCH (08:42)
[2021-12-21] MEDS: Valproate Sodium 250 mg/5 ml UD Cup PO SCH ×2 (08:43→21:23)
[2021-12-21] MEDS: Methimazole 5 MG TAB PO SCH ×2 (08:46→21:23)
[2021-12-21] MEDS: OLANZapine 5 MG TAB PO SCH (21:23)
[2021-12-22] MEDS: Ascorbic Acid 500 mg Chewable Tablet PO SCH (08:14)
[2021-12-22] MEDS: Polyethylene Glycol 3350 17 GM Packet PO SCH (08:14)
[2021-12-22] MEDS: OLANZapine 2.5 MG TAB PO SCH ×2 (08:14→14:13)
[2021-12-22] MEDS: Valproate Sodium 250 mg/5 ml UD Cup PO SCH ×2 (08:14→20:28)
[2021-12-22] MEDS: Methimazole 5 MG TAB PO SCH ×2 (08:14→20:28)
[2021-12-22] MEDS: Enoxaparin Sodium 40 MG/0.4 ML SYRINGE SC SCH (08:14)
[2021-12-22] MEDS: Ferrous Sulfate 325 MG TAB PO SCH (08:14)
[2021-12-22] MEDS: Amlodipine 5 MG TAB PO SCH (08:15)
[2021-12-22] MEDS: OLANZapine 5 MG TAB PO SCH (20:28)
[2021-12-23] MEDS: Polyethylene Glycol 3350 17 GM Packet PO SCH (10:03)
[2021-12-23] MEDS: Ferrous Sulfate 325 MG TAB PO SCH (10:03)
[2021-12-23] MEDS: Ascorbic Acid 500 mg Chewable Tablet PO SCH (10:03)
[2021-12-23] MEDS: Methimazole 5 MG TAB PO SCH ×2 (10:03→20:13)
[2021-12-23] MEDS: Enoxaparin Sodium 40 MG/0.4 ML SYRINGE SC SCH (10:03)
[2021-12-23] MEDS: OLANZapine 2.5 MG TAB PO SCH ×2 (10:03→14:01)
[2021-12-23] MEDS: Amlodipine 5 MG TAB PO SCH (10:04)
[2021-12-23] MEDS: Valproate Sodium 250 mg/5 ml UD Cup PO SCH ×2 (10:09→20:13)
[2021-12-23] MEDS: OLANZapine 5 MG TAB PO SCH (20:13)
[2021-12-24] MEDS: Enoxaparin Sodium 40 MG/0.4 ML SYRINGE SC SCH (10:12)
[2021-12-24] MEDS: Valproate Sodium 250 mg/5 ml UD Cup PO SCH ×2 (10:12→20:14)
[2021-12-24] MEDS: Methimazole 5 MG TAB PO SCH ×2 (10:12→20:14)
[2021-12-24] MEDS: Ascorbic Acid 500 mg Chewable Tablet PO SCH (10:12)
[2021-12-24] MEDS: Ferrous Sulfate 325 MG TAB PO SCH (10:12)
[2021-12-24] MEDS: Amlodipine 5 MG TAB PO SCH (10:12)
[2021-12-24] MEDS: Polyethylene Glycol 3350 17 GM Packet PO SCH (10:13)
[2021-12-24] MEDS: OLANZapine 2.5 MG TAB PO SCH ×2 (10:13→14:10)
[2021-12-24] MEDS: OLANZapine 5 MG TAB PO SCH (20:14)
[2021-12-25] MEDS: Enoxaparin Sodium 40 MG/0.4 ML SYRINGE SC SCH (10:48)
[2021-12-25] MEDS: Valproate Sodium 250 mg/5 ml UD Cup PO SCH ×2 (10:48→22:26)
[2021-12-25] MEDS: cloNIDine 0.1mg/24 Hour PATCH TD SCH (10:48)
[2021-12-25] MEDS: Polyethylene Glycol 3350 17 GM Packet PO SCH (10:49)
[2021-12-25] MEDS: OLANZapine 2.5 MG TAB PO SCH ×2 (10:50→14:53)
[2021-12-25] MEDS: Methimazole 5 MG TAB PO SCH ×2 (10:50→22:25)
[2021-12-25] MEDS: Amlodipine 5 MG TAB PO SCH (10:50)
[2021-12-25] MEDS: Ascorbic Acid 500 mg Chewable Tablet PO SCH (10:50)
[2021-12-25] MEDS: Ferrous Sulfate 325 MG TAB PO SCH (10:51)
[2021-12-25] MEDS: OLANZapine 5 MG TAB PO SCH (22:25)
[2021-12-26] MEDS: Enoxaparin Sodium 40 MG/0.4 ML SYRINGE SC SCH (11:00)
[2021-12-26] MEDS: Methimazole 5 MG TAB PO SCH ×2 (11:00→20:44)
[2021-12-26] MEDS: Ferrous Sulfate 325 MG TAB PO SCH (11:00)
[2021-12-26] MEDS: Ascorbic Acid 500 mg Chewable Tablet PO SCH (11:00)
[2021-12-26] MEDS: Amlodipine 5 MG TAB PO SCH (11:00)
[2021-12-26] MEDS: OLANZapine 2.5 MG TAB PO SCH ×2 (11:00→14:00)
[2021-12-26] MEDS: Valproate Sodium 250 mg/5 ml UD Cup PO SCH ×2 (11:00→20:47)
[2021-12-26] MEDS: Polyethylene Glycol 3350 17 GM Packet PO SCH (11:00)
[2021-12-26] MEDS: OLANZapine 5 MG TAB PO SCH (20:44)
[2021-12-27] MEDS: Valproate Sodium 250 mg/5 ml UD Cup PO SCH ×2 (08:19→20:32)
[2021-12-27] MEDS: Ferrous Sulfate 325 MG TAB PO SCH (08:20)
[2021-12-27] MEDS: OLANZapine 2.5 MG TAB PO SCH ×2 (08:20→17:04)
[2021-12-27] MEDS: Amlodipine 5 MG TAB PO SCH (08:20)
[2021-12-27] MEDS: Enoxaparin Sodium 40 MG/0.4 ML SYRINGE SC SCH (08:20)
[2021-12-27] MEDS: Ascorbic Acid 500 mg Chewable Tablet PO SCH (08:20)
[2021-12-27] MEDS: Polyethylene Glycol 3350 17 GM Packet PO SCH (08:21)
[2021-12-27] MEDS: Methimazole 5 MG TAB PO SCH ×2 (08:28→20:30)
[2021-12-27] MEDS: OLANZapine 5 MG TAB PO SCH (20:30)
[2021-12-28] MEDS: Valproate Sodium 250 mg/5 ml UD Cup PO SCH ×2 (09:03→20:33)
[2021-12-28] MEDS: OLANZapine 2.5 MG TAB PO SCH ×2 (09:03→14:43)
[2021-12-28] MEDS: Polyethylene Glycol 3350 17 GM Packet PO SCH (09:04)
[2021-12-28] MEDS: Methimazole 5 MG TAB PO SCH ×2 (09:04→20:33)
[2021-12-28] MEDS: Enoxaparin Sodium 40 MG/0.4 ML SYRINGE SC SCH (09:04)
[2021-12-28] MEDS: Ascorbic Acid 500 mg Chewable Tablet PO SCH (09:04)
[2021-12-28] MEDS: Ferrous Sulfate 325 MG TAB PO SCH (09:04)
[2021-12-28] MEDS: Amlodipine 5 MG TAB PO SCH (09:04)
[2021-12-28] MEDS: OLANZapine 5 MG TAB PO SCH (20:33)
[2021-12-29] MEDS: Enoxaparin Sodium 40 MG/0.4 ML SYRINGE SC SCH (10:42)
[2021-12-29] MEDS: Ferrous Sulfate 325 MG TAB PO SCH (10:42)
[2021-12-29] MEDS: OLANZapine 2.5 MG TAB PO SCH ×2 (10:43→14:00)
[2021-12-29] MEDS: Polyethylene Glycol 3350 17 GM Packet PO SCH (10:44)
[2021-12-29] MEDS: Ascorbic Acid 500 mg Chewable Tablet PO SCH (10:44)
[2021-12-29] MEDS: Valproate Sodium 250 mg/5 ml UD Cup PO SCH ×2 (10:44→23:04)
[2021-12-29] MEDS: Amlodipine 5 MG TAB PO SCH (10:45)
[2021-12-29] MEDS: Methimazole 5 MG TAB PO SCH ×2 (10:49→23:06)
[2021-12-29] MEDS: OLANZapine 5 MG TAB PO SCH (23:04)
[2021-12-30] MEDS: Methimazole 5 MG TAB PO SCH ×2 (10:25→22:29)
[2021-12-30] MEDS: Amlodipine 5 MG TAB PO SCH (10:25)
[2021-12-30] MEDS: Enoxaparin Sodium 40 MG/0.4 ML SYRINGE SC SCH (10:25)
[2021-12-30] MEDS: Ferrous Sulfate 325 MG TAB PO SCH (10:26)
[2021-12-30] MEDS: Polyethylene Glycol 3350 17 GM Packet PO SCH (10:26)
[2021-12-30] MEDS: Ascorbic Acid 500 mg Chewable Tablet PO SCH (10:26)
[2021-12-30] MEDS: OLANZapine 2.5 MG TAB PO SCH ×2 (10:26→14:47)
[2021-12-30] MEDS: Valproate Sodium 250 mg/5 ml UD Cup PO SCH ×2 (10:31→22:28)
[2021-12-30] MEDS: OLANZapine 5 MG TAB PO SCH (22:28)
[2021-12-31] MEDS: Enoxaparin Sodium 40 MG/0.4 ML SYRINGE SC SCH (09:51)
[2021-12-31] MEDS: Polyethylene Glycol 3350 17 GM Packet PO SCH (09:52)
[2021-12-31] MEDS: Valproate Sodium 250 mg/5 ml UD Cup PO SCH ×2 (09:52→21:58)
[2021-12-31] MEDS: Amlodipine 5 MG TAB PO SCH (09:54)
[2021-12-31] MEDS: Ferrous Sulfate 325 MG TAB PO SCH (09:54)
[2021-12-31] MEDS: OLANZapine 2.5 MG TAB PO SCH ×2 (09:55→13:06)
[2021-12-31] MEDS: Methimazole 5 MG TAB PO SCH ×2 (09:55→21:59)
[2021-12-31] MEDS: Ascorbic Acid 500 mg Chewable Tablet PO SCH (09:55)
[2021-12-31] MEDS: OLANZapine 5 MG TAB PO SCH (21:59)
[2022-01-01] MEDS: Polyethylene Glycol 3350 17 GM Packet PO SCH (08:55)
[2022-01-01] MEDS: Valproate Sodium 250 mg/5 ml UD Cup PO SCH ×2 (08:55→21:04)
[2022-01-01] MEDS: Amlodipine 5 MG TAB PO SCH (08:56)
[2022-01-01] MEDS: Ascorbic Acid 500 mg Chewable Tablet PO SCH (08:56)
[2022-01-01] MEDS: OLANZapine 2.5 MG TAB PO SCH ×2 (08:56→14:15)
[2022-01-01] MEDS: Methimazole 5 MG TAB PO SCH ×2 (08:56→21:05)
[2022-01-01] MEDS: Enoxaparin Sodium 40 MG/0.4 ML SYRINGE SC SCH (08:56)
[2022-01-01] MEDS: Ferrous Sulfate 325 MG TAB PO SCH (08:56)
[2022-01-01] MEDS: cloNIDine 0.1mg/24 Hour PATCH TD SCH (08:57)
[2022-01-01] MEDS: OLANZapine 5 MG TAB PO SCH (21:05)
[2022-01-02] MEDS: OLANZapine 2.5 MG TAB PO SCH ×2 (08:51→12:22)
[2022-01-02] MEDS: Valproate Sodium 250 mg/5 ml UD Cup PO SCH ×2 (08:51→21:33)
[2022-01-02] MEDS: Enoxaparin Sodium 40 MG/0.4 ML SYRINGE SC SCH (08:52)
[2022-01-02] MEDS: Amlodipine 5 MG TAB PO SCH (08:52)
[2022-01-02] MEDS: Polyethylene Glycol 3350 17 GM Packet PO SCH (08:52)
[2022-01-02] MEDS: Methimazole 5 MG TAB PO SCH ×2 (08:52→21:33)
[2022-01-02] MEDS: Ferrous Sulfate 325 MG TAB PO SCH (08:53)
[2022-01-02] MEDS: Ascorbic Acid 500 mg Chewable Tablet PO SCH (08:53)
[2022-01-02] MEDS: OLANZapine 5 MG TAB PO SCH (21:33)
[2022-01-03] MEDS: Polyethylene Glycol 3350 17 GM Packet PO SCH (08:38)
[2022-01-03] MEDS: Enoxaparin Sodium 40 MG/0.4 ML SYRINGE SC SCH (08:38)
[2022-01-03] MEDS: Ascorbic Acid 500 mg Chewable Tablet PO SCH (08:39)
[2022-01-03] MEDS: Amlodipine 5 MG TAB PO SCH (08:39)
[2022-01-03] MEDS: Ferrous Sulfate 325 MG TAB PO SCH (08:39)
[2022-01-03] MEDS: OLANZapine 2.5 MG TAB PO SCH ×2 (08:39→16:13)
[2022-01-03] MEDS: Valproate Sodium 250 mg/5 ml UD Cup PO SCH ×2 (08:39→20:31)
[2022-01-03] MEDS: Methimazole 5 MG TAB PO SCH ×2 (08:39→20:31)
[2022-01-03] MEDS: OLANZapine 5 MG TAB PO SCH (20:31)
[2022-01-04] MEDS: Ascorbic Acid 500 mg Chewable Tablet PO SCH (09:34)
[2022-01-04] MEDS: Amlodipine 5 MG TAB PO SCH (09:34)
[2022-01-04] MEDS: Ferrous Sulfate 325 MG TAB PO SCH (09:34)
[2022-01-04] MEDS: Enoxaparin Sodium 40 MG/0.4 ML SYRINGE SC SCH (09:34)
[2022-01-04] MEDS: OLANZapine 2.5 MG TAB PO SCH ×2 (09:35→13:44)
[2022-01-04] MEDS: Methimazole 5 MG TAB PO SCH ×2 (09:35→20:14)
[2022-01-04] MEDS: Polyethylene Glycol 3350 17 GM Packet PO SCH (09:35)
[2022-01-04] MEDS: Valproate Sodium 250 mg/5 ml UD Cup PO SCH ×2 (09:35→20:14)
[2022-01-04] MEDS: OLANZapine 5 MG TAB PO SCH (20:14)
[2022-01-05] MEDS: Amlodipine 5 MG TAB PO SCH (08:47)
[2022-01-05] MEDS: Methimazole 5 MG TAB PO SCH ×2 (08:48→21:49)
[2022-01-05] MEDS: Enoxaparin Sodium 40 MG/0.4 ML SYRINGE SC SCH (08:48)
[2022-01-05] MEDS: Polyethylene Glycol 3350 17 GM Packet PO SCH (08:48)
[2022-01-05] MEDS: Ferrous Sulfate 325 MG TAB PO SCH (08:49)
[2022-01-05] MEDS: Valproate Sodium 250 mg/5 ml UD Cup PO SCH ×2 (08:49→21:50)
[2022-01-05] MEDS: Ascorbic Acid 500 mg Chewable Tablet PO SCH (08:49)
[2022-01-05] MEDS: OLANZapine 2.5 MG TAB PO SCH ×2 (08:49→16:15)
[2022-01-05] MEDS: OLANZapine 5 MG TAB PO SCH (21:49)
[2022-01-06] MEDS: Polyethylene Glycol 3350 17 GM Packet PO SCH (09:13)
[2022-01-06] MEDS: Valproate Sodium 250 mg/5 ml UD Cup PO SCH (09:13)
[2022-01-06] MEDS: Enoxaparin Sodium 40 MG/0.4 ML SYRINGE SC SCH (09:13)
[2022-01-06] MEDS: OLANZapine 2.5 MG TAB PO SCH ×2 (09:13→14:04)
[2022-01-06] MEDS: Amlodipine 5 MG TAB PO SCH (09:13)
[2022-01-06] MEDS: Methimazole 5 MG TAB PO SCH ×2 (09:14→22:04)
[2022-01-06] MEDS: Ascorbic Acid 500 mg Chewable Tablet PO SCH (09:14)
[2022-01-06] MEDS: Ferrous Sulfate 325 MG TAB PO SCH (09:14)
[2022-01-06] MEDS: Divalproex Sodium 125 mg Sprinkle Capsule PO SCH (22:03)
[2022-01-06] MEDS: OLANZapine 5 MG TAB PO SCH (22:04)
[2022-01-07] MEDS: Methimazole 5 MG TAB PO SCH ×2 (10:00→21:21)
[2022-01-07] MEDS: Ascorbic Acid 500 mg Chewable Tablet PO SCH (10:00)
[2022-01-07] MEDS: Ferrous Sulfate 325 MG TAB PO SCH (10:00)
[2022-01-07] MEDS: Enoxaparin Sodium 40 MG/0.4 ML SYRINGE SC SCH (10:00)
[2022-01-07] MEDS: Polyethylene Glycol 3350 17 GM Packet PO SCH (10:00)
[2022-01-07] MEDS: OLANZapine 2.5 MG TAB PO SCH ×2 (10:00→13:43)
[2022-01-07] MEDS: Amlodipine 5 MG TAB PO SCH (10:00)
[2022-01-07] MEDS: Divalproex Sodium 125 mg Sprinkle Capsule PO SCH ×2 (10:00→21:21)
[2022-01-07] MEDS: OLANZapine 5 MG TAB PO SCH (21:21)
[2022-01-08] MEDS: Enoxaparin Sodium 40 MG/0.4 ML SYRINGE SC SCH (09:25)
[2022-01-08] MEDS: Polyethylene Glycol 3350 17 GM Packet PO SCH (09:25)
[2022-01-08] MEDS: Divalproex Sodium 125 mg Sprinkle Capsule PO SCH ×2 (09:26→22:16)
[2022-01-08] MEDS: OLANZapine 2.5 MG TAB PO SCH ×2 (09:26→14:52)
[2022-01-08] MEDS: Ferrous Sulfate 325 MG TAB PO SCH (09:26)
[2022-01-08] MEDS: Amlodipine 5 MG TAB PO SCH (09:26)
[2022-01-08] MEDS: Methimazole 5 MG TAB PO SCH ×2 (09:26→22:16)
[2022-01-08] MEDS: Ascorbic Acid 500 mg Chewable Tablet PO SCH (09:26)
[2022-01-08] MEDS: cloNIDine 0.1mg/24 Hour PATCH TD SCH (09:35)
[2022-01-08] MEDS: OLANZapine 5 MG TAB PO SCH (22:16)
[2022-01-09] MEDS: Enoxaparin Sodium 40 MG/0.4 ML SYRINGE SC SCH (09:55)
[2022-01-09] MEDS: Methimazole 5 MG TAB PO SCH (09:55)
[2022-01-09] MEDS: Ferrous Sulfate 325 MG TAB PO SCH (09:56)
[2022-01-09] MEDS: Ascorbic Acid 500 mg Chewable Tablet PO SCH (09:57)
[2022-01-09] MEDS: Amlodipine 5 MG TAB PO SCH (09:57)
[2022-01-09] MEDS: Polyethylene Glycol 3350 17 GM Packet PO SCH (09:58)
[2022-01-09] MEDS: Divalproex Sodium 125 mg Sprinkle Capsule PO SCH (09:58)
[2022-01-09] MEDS: OLANZapine 2.5 MG TAB PO SCH ×2 (09:59→14:12)
[2022-01-09 12:17] VITALS: BP 92/62; TEMP 98.3
== END 2022-01-09 15:40 | DRG 871 ==
LOC: CSHERS 19:12 → CSHERHOLD 21:44 → UNDOADMIN 12-02 00:23 → CSHERHOLD 12-02 08:40 → CSHIMCU 12-02 08:40 → CSHTELE 12-02 20:29
PROVIDERS: ADMIT Student in an Organized Health Care Education/Training Program; ATTEND Hospitalist
DX: A41.59 Other Gram-negative sepsis (principal); G93.41 Metabolic encephalopathy; J18.9 Pneumonia, unspecified organism; J96.01 Acute respiratory failure with hypoxia; J69.0 Pneumonitis due to inhalation of food and vomit; N17.9 Acute kidney failure, unspecified; N39.0 Urinary tract infection, site not specified; F02.811 Dementia in other diseases classified elsewhere, unspecified severity, with agitation; E87.0 Hyperosmolality and hypernatremia; R65.20 Severe sepsis without septic shock; Z20.822 Contact with and (suspected) exposure to COVID-19; G93.89 Other specified disorders of brain; I10 Essential (primary) hypertension; E86.0 Dehydration; K59.00 Constipation, unspecified; E03.9 Hypothyroidism, unspecified; G30.9 Alzheimer's disease, unspecified; R00.1 Bradycardia, unspecified; R62.7 Adult failure to thrive; R53.81 Other malaise; Z68.22 Body mass index [BMI] 22.0-22.9, adult; Z79.899 Other long term (current) drug therapy
CPT/HCPCS: 36415; 51701; 70450; 70551; 71045; 74176; 80048; 80053; 80202; 80306; 80307; 81003; 81015; 82550; 83605; 83690; 83735; 83880; 84439; 84443; 84484; 85025; 86769; 87040; 87077; 87081; 87086; 87186; 87811; 93005; 93306; 93880; 94760; 95816; 95819; 95957; 96361; 96365; 96366; 96367; 96375; J0696; J1650; J1885; J2060; J2543; J3370; J3490; J7042; J7050; J7120

== ENCOUNTER 2022-01-15 17:37 | Inpatient (IN) | payer OTHER ==
[2022-01-15] MEDS ORDERED: Acetaminophen 650 MG Suppository ONE (17:43)
[2022-01-15 18:06] LABS: Bilirubin Neg (Negative); Blood, Urine Negative (Negative); Clarity Clear (Clear); Glucose, Urine (Dipstick) Normal (Negative); Ketone, Urine 5 mg/dL (Negative); Leukocyte 100 (Negative); Nitrite Negative (Negative); Protein, Urine (Dipstick) 30 mg/dl (Neg-Trace); Specific Gravity, Urine 1.025 (1.005-1.030)
[2022-01-15] MEDS ORDERED: Cefepime 2 GM VIAL ONE (18:14)
[2022-01-15 18:17] LABS: Bacteria/HPF 2+ HPF (None Seen); Mucous/LPF 2+ LPF (<2+); RBC/HPF None Seen HPF (0-3); Trichomonas/HPF Rare HPF (None Seen)
[2022-01-15] MEDS ORDERED: VANCOMYCIN 1.25 GM/250 ML BAG 1.25 GM in Premix Bag 1 BAG IVPB SCH (18:30)
[2022-01-15 18:34] LABS: #Eosinphils 0.1 10x3/uL (0.0-0.5); #Neutrophils 11.9 10x3/uL (1.5-8.4); %Basophils 0.2 % (0.0-2.0); %Eosinophils 0.7 % (0.0-6.0); %Lymphocytes 9.4 % (18.0-47.0); %Monocytes 12.7 % (0.0-10.0); %Neutrophils 76.4 % (40.0-75.0); Hemoglobin 11.4 g/dL (12.0-15.5); Mean Corpuscular HGB CONC 33.5 g/dL (32.0-36.0); Mean Corpuscular Hemoglobin 29.8 pg (27.0-33.0); Mean Platelet Volume 10.8 fl (7.4-10.4); Platelet Count 393 10x3/uL (150-450); RBC Distribution Width 17.8 % (11.5-14.5); Red Blood Cell (RBC) Count 3.82 10x6/uL (3.90-5.03); White Blood Cell (WBC) Count 15.6 10x3/uL (3.5-10.5)
[2022-01-15 18:39] LABS: ALT (SGPT) 18 U/L (8-55); AST (SGOT) 27 U/L (5-34); Albumin 2.9 g/dL (3.4-4.8); Alkaline Phosphatase 71 U/L (40-110); Anion Gap 15 mmol/L (10-20); BUN (Urea Nitrogen) 28 mg/dL (9.8-20.1); Bilirubin, Total 0.8 mg/dL (0.2-1.2); Calc. Creatinine Clearance 0 mL/min (70-130); Carbon Dioxide 23 mmol/L (23-31); Chloride 113 mmol/L (98-107); Estimated GFR 71; Globulin 4.2 g/dL (2.4-3.5); Glucose 122 mg/dL (80-115); Magnesium 1.9 mg/dL (1.6-2.6); Potassium 4.4 mmol/L (3.5-5.1); Protein, Total 7.1 g/dL (5.8-8.1); Sodium 147 mmol/L (136-145)
[2022-01-15 18:47] LABS: SARS-CoV-2 NAA Rapid Test Not Detected (NotDetected)
[2022-01-15 21:13] LABS: Lactic Acid 1.4 mmol/L (0.5-2.2)
[2022-01-15] MEDS ORDERED: Senokot S 8.6-50 MG TAB PO PRN (22:14)
[2022-01-15] MEDS ORDERED: Acetaminophen 650 MG Suppository PR PRN (22:14)
[2022-01-15] MEDS ORDERED: Ondansetron PF 4 MG/2 ML Vial IVP PRN (22:14)
[2022-01-15] MEDS ORDERED: Acetaminophen 325 MG TAB PO PRN (22:14)
[2022-01-15] MEDS ORDERED: Guaifenesin DM 100-10/5 ML UDCUP PO PRN (22:14)
[2022-01-15] MEDS ORDERED: Piperacillin/Tazobactam 3.375 GM in Sodium Chloride 0.9% 100 ML IVPB SCH (22:30)
[2022-01-15 23:01] LABS: Actual Bicarbonate (HCO3v) 27 mEq/L (22-28); Base Excess 2.2 mEq/L (-2.0 to +3.0); Calcium, Ionized (venous) 1.15 mmol/L (1.16-1.32); Chloride (VBG) 111 mmol/L (98-106); Hemoglobin (Hb) 13.5 g/dL (11.7-16.0); Potassium (VBG) 4.25 mmol/L (3.70-5.30); Puncture Site Other Site; Sodium 146.8 mmol/L (133-146); pH (venous) 7.41 (7.32-7.43)
[2022-01-16] MEDS ORDERED: Piperacillin/Tazobactam 3.375 GM VIAL ONE ×2 (00:15→05:01)
[2022-01-16] MEDS ORDERED: metroNIDAZOLE 500 MG/100 ML BAG ONE (00:17)
[2022-01-16] MEDS: Lactated Ringer's 1,000 ML IV SCH ×3 (00:32→15:24)
[2022-01-16] MEDS: metroNIDAZOLE 500 MG in Premix Bag 1 BAG IVPB SCH ×3 (01:05→23:20)
[2022-01-16 04:02] LABS: Anion Gap 16 mmol/L (10-20); BUN (Urea Nitrogen) 24 mg/dL (9.8-20.1); Calc. Creatinine Clearance 0 mL/min (70-130); Calcium 8.9 mg/dL (7.8-10.44); Carbon Dioxide 25 mmol/L (23-31); Chloride 113 mmol/L (98-107); Estimated GFR 75; Glucose 110 mg/dL (80-115); Sodium 150 mmol/L (136-145)
[2022-01-16 04:09] LABS: #Monocytes 2.2 10x3/uL (0.0-1.1); #Neutrophils 13.3 10x3/uL (1.5-8.4); %Basophils 0.1 % (0.0-2.0); %Lymphocytes 8.2 % (18.0-47.0); %Monocytes 12.9 % (0.0-10.0); %Neutrophils 78.3 % (40.0-75.0); Mean Corpuscular Hemoglobin 30.1 pg (27.0-33.0); Mean Corpuscular Volume 91.2 fl (81.6-98.3); Mean Platelet Volume 10.8 fl (7.4-10.4); Platelet Count 320 10x3/uL (150-450); RBC Distribution Width 17.9 % (11.5-14.5); Red Blood Cell (RBC) Count 3.65 10x6/uL (3.90-5.03); White Blood Cell (WBC) Count 16.9 10x3/uL (3.5-10.5)
[2022-01-16] MEDS: Piperacillin/Tazobactam 3.375 GM in Sodium Chloride 0.9% 100 ML IVPB SCH ×3 (05:10→23:12)
[2022-01-16] MEDS: Vancomycin HCl 750 MG in Sodium Chloride 0.9% 250 ML 250 ML IVPB SCH ×2 (08:18→20:42)
[2022-01-16 08:19] VITALS: BMI 20.5
[2022-01-16] MEDS: Ascorbic Acid 500 mg Chewable Tablet PO SCH (08:19)
[2022-01-16] MEDS: Famotidine/PF 20 mg/2ml Vial SLOW IVP SCH ×2 (08:19→20:49)
[2022-01-16] MEDS: Amlodipine 5 MG TAB PO SCH (08:19)
[2022-01-16] MEDS: Enoxaparin Sodium 40 MG/0.4 ML SYRINGE SC SCH (08:19)
[2022-01-16] MEDS: Methimazole 5 MG TAB PO SCH (08:20)
[2022-01-16 16:24] LABS: Legionella Urinary Ag Negative (Negative); Strep pneumo Urine Ag NEGATIVE (NEGATIVE)
[2022-01-17] MEDS: Lactated Ringer's 1,000 ML IV SCH (01:18)
[2022-01-17] MEDS: Methimazole 5 MG TAB PO SCH ×3 (01:22→23:38)
[2022-01-17] MEDS: Piperacillin/Tazobactam 3.375 GM in Sodium Chloride 0.9% 100 ML IVPB SCH ×3 (05:59→23:01)
[2022-01-17 07:31] LABS: #Monocytes 1.6 10x3/uL (0.0-1.1); %Basophils 0.2 % (0.0-2.0); %Eosinophils 0.1 % (0.0-6.0); %Lymphocytes 14.7 % (18.0-47.0); %Monocytes 10.1 % (0.0-10.0); %Neutrophils 74.3 % (40.0-75.0); Hemoglobin 9.8 g/dL (12.0-15.5); Mean Corpuscular HGB CONC 32.1 g/dL (32.0-36.0); Mean Corpuscular Hemoglobin 30.1 pg (27.0-33.0); Mean Corpuscular Volume 93.6 fl (81.6-98.3); Mean Platelet Volume 10.9 fl (7.4-10.4); Platelet Count 307 10x3/uL (150-450); RBC Distribution Width 17.8 % (11.5-14.5); Red Blood Cell (RBC) Count 3.26 10x6/uL (3.90-5.03); White Blood Cell (WBC) Count 16.1 10x3/uL (3.5-10.5)
[2022-01-17 07:40] LABS: Anion Gap 14 mmol/L (10-20); BUN (Urea Nitrogen) 15 mg/dL (9.8-20.1); Calc. Creatinine Clearance 79 mL/min (70-130); Calcium 8.9 mg/dL (7.8-10.44); Carbon Dioxide 23 mmol/L (23-31); Chloride 117 mmol/L (98-107); Estimated GFR 99; Glucose 109 mg/dL (80-115); Potassium 3.5 mmol/L (3.5-5.1); Sodium 150 mmol/L (136-145); Vancomycin, Trough 14.3 ug/mL
[2022-01-17] MEDS: Ascorbic Acid 500 mg Chewable Tablet PO SCH (08:34)
[2022-01-17] MEDS: Amlodipine 5 MG TAB PO SCH (08:34)
[2022-01-17] MEDS: Enoxaparin Sodium 40 MG/0.4 ML SYRINGE SC SCH (08:36)
[2022-01-17] MEDS: Vancomycin HCl 750 MG in Sodium Chloride 0.9% 250 ML 250 ML IVPB SCH ×2 (08:36→21:27)
[2022-01-17] MEDS: Famotidine/PF 20 mg/2ml Vial SLOW IVP SCH ×2 (08:36→21:29)
[2022-01-17] MEDS: Sodium Chloride 0.45% 1,000 ML IV SCH ×2 (08:50→21:38)
[2022-01-17 12:54] LABS: Anion Gap 11 mmol/L (10-20); BUN (Urea Nitrogen) 15 mg/dL (9.8-20.1); Calc. Creatinine Clearance 75 mL/min (70-130); Calcium 8.6 mg/dL (7.8-10.44); Carbon Dioxide 22 mmol/L (23-31); Chloride 114 mmol/L (98-107); Estimated GFR 98; Glucose 183 mg/dL (80-115); Potassium 3.2 mmol/L (3.5-5.1); Sodium 144 mmol/L (136-145)
[2022-01-17] MEDS: metroNIDAZOLE 500 MG in Premix Bag 1 BAG IVPB SCH ×2 (14:12→23:09)
[2022-01-17] MEDS ORDERED: Potassium Chloride 20 MEQ in Premix Bag 2 BAG IVPB ONE (14:18)
[2022-01-17] MEDS: Potassium Chloride 20 MEQ in Premix Bag 1 BAG IVPB SCH ×2 (15:30→17:31)
[2022-01-17 16:13] LABS: Magnesium 1.7 mg/dL (1.6-2.6)
[2022-01-17 18:46] LABS: Anion Gap 13 mmol/L (10-20); BUN (Urea Nitrogen) 13 mg/dL (9.8-20.1); Calc. Creatinine Clearance 74 mL/min (70-130); Calcium 8.5 mg/dL (7.8-10.44); Carbon Dioxide 20 mmol/L (23-31); Chloride 116 mmol/L (98-107); Estimated GFR 97; Glucose 201 mg/dL (80-115); Potassium 3.6 mmol/L (3.5-5.1); Sodium 145 mmol/L (136-145)
[2022-01-18 04:40] LABS: #Monocytes 1.5 10x3/uL (0.0-1.1); #Neutrophils 9.5 10x3/uL (1.5-8.4); %Basophils 0.2 % (0.0-2.0); %Eosinophils 0.3 % (0.0-6.0); %Lymphocytes 15.4 % (18.0-47.0); %Monocytes 11.1 % (0.0-10.0); %Neutrophils 72.1 % (40.0-75.0); Hemoglobin 8.7 g/dL (12.0-15.5); Mean Corpuscular HGB CONC 32.8 g/dL (32.0-36.0); Mean Corpuscular Hemoglobin 29.5 pg (27.0-33.0); Mean Corpuscular Volume 89.8 fl (81.6-98.3); Platelet Count 312 10x3/uL (150-450); RBC Distribution Width 17.5 % (11.5-14.5); Red Blood Cell (RBC) Count 2.95 10x6/uL (3.90-5.03); White Blood Cell (WBC) Count 13.2 10x3/uL (3.5-10.5)
[2022-01-18 04:44] LABS: Anion Gap 11 mmol/L (10-20); BUN (Urea Nitrogen) 11 mg/dL (9.8-20.1); Calc. Creatinine Clearance 85 mL/min (70-130); Calcium 8.1 mg/dL (7.8-10.44); Carbon Dioxide 24 mmol/L (23-31); Chloride 114 mmol/L (98-107); Estimated GFR 101; Glucose 95 mg/dL (80-115); Potassium 3.5 mmol/L (3.5-5.1); Sodium 145 mmol/L (136-145)
[2022-01-18] MEDS: Piperacillin/Tazobactam 3.375 GM in Sodium Chloride 0.9% 100 ML IVPB SCH ×3 (05:42→23:38)
[2022-01-18] MEDS: Methimazole 5 MG TAB PO SCH ×2 (08:41→21:55)
[2022-01-18] MEDS: Enoxaparin Sodium 40 MG/0.4 ML SYRINGE SC SCH (08:41)
[2022-01-18] MEDS: Famotidine/PF 20 mg/2ml Vial SLOW IVP SCH ×2 (08:41→21:49)
[2022-01-18] MEDS: Ascorbic Acid 500 mg Chewable Tablet PO SCH (08:42)
[2022-01-18] MEDS: Amlodipine 5 MG TAB PO SCH (08:42)
[2022-01-18] MEDS: Vancomycin HCl 750 MG in Sodium Chloride 0.9% 250 ML 250 ML IVPB SCH ×2 (10:45→21:48)
[2022-01-18] MEDS: Sodium Chloride 0.45% 1,000 ML IV SCH (13:30)
[2022-01-18] MEDS: metroNIDAZOLE 500 MG in Premix Bag 1 BAG IVPB SCH ×2 (14:59→23:41)
[2022-01-18 19:23] LABS: Vancomycin, Trough 13.8 ug/mL
[2022-01-19] MEDS: Piperacillin/Tazobactam 3.375 GM in Sodium Chloride 0.9% 100 ML IVPB SCH ×3 (05:53→23:08)
[2022-01-19] MEDS: Famotidine/PF 20 mg/2ml Vial SLOW IVP SCH ×2 (09:19→20:51)
[2022-01-19] MEDS: Enoxaparin Sodium 40 MG/0.4 ML SYRINGE SC SCH (09:19)
[2022-01-19] MEDS: Amlodipine 5 MG TAB PO SCH (09:19)
[2022-01-19] MEDS: Ascorbic Acid 500 mg Chewable Tablet PO SCH (09:19)
[2022-01-19] MEDS: Methimazole 5 MG TAB PO SCH ×3 (09:22→20:52)
[2022-01-19] MEDS: Vancomycin HCl 1 GM in Sodium Chloride 0.9% 250 ML 250 ML IVPB SCH ×2 (11:30→20:51)
[2022-01-19] MEDS: metroNIDAZOLE 500 MG in Premix Bag 1 BAG IVPB SCH ×2 (13:22→23:29)
[2022-01-19] MEDS: OLANZapine 2.5 MG TAB PO SCH ×2 (20:44→20:52)
[2022-01-20 04:17] LABS: #Eosinphils 0.1 10x3/uL (0.0-0.5); %Basophils 0.5 % (0.0-2.0); %Eosinophils 1.1 % (0.0-6.0); %Lymphocytes 25.2 % (18.0-47.0); %Neutrophils 60.7 % (40.0-75.0); Hemoglobin 7.9 g/dL (12.0-15.5); Mean Corpuscular HGB CONC 33.3 g/dL (32.0-36.0); Mean Corpuscular Volume 90.1 fl (81.6-98.3); Mean Platelet Volume 10.5 fl (7.4-10.4); Platelet Count 311 10x3/uL (150-450); RBC Distribution Width 17.4 % (11.5-14.5); Red Blood Cell (RBC) Count 2.63 10x6/uL (3.90-5.03); White Blood Cell (WBC) Count 8.3 10x3/uL (3.5-10.5)
[2022-01-20 04:30] LABS: Anion Gap 8 mmol/L (10-20); BUN (Urea Nitrogen) 7 mg/dL (9.8-20.1); Calc. Creatinine Clearance 86 mL/min (70-130); Calcium 7.8 mg/dL (7.8-10.44); Carbon Dioxide 26 mmol/L (23-31); Chloride 110 mmol/L (98-107); Estimated GFR 101; Glucose 101 mg/dL (80-115); Magnesium 1.8 mg/dL (1.6-2.6); Phosphorus 2.8 mg/dL (2.3-4.7); Potassium 3.6 mmol/L (3.5-5.1); Sodium 140 mmol/L (136-145)
[2022-01-20] MEDS: Piperacillin/Tazobactam 3.375 GM in Sodium Chloride 0.9% 100 ML IVPB SCH ×3 (05:47→22:28)
[2022-01-20] MEDS: Famotidine/PF 20 mg/2ml Vial SLOW IVP SCH (10:13)
[2022-01-20] MEDS: Vancomycin HCl 1 GM in Sodium Chloride 0.9% 250 ML 250 ML IVPB SCH ×2 (10:13→21:14)
[2022-01-20] MEDS: Enoxaparin Sodium 40 MG/0.4 ML SYRINGE SC SCH (10:14)
[2022-01-20] MEDS: Ascorbic Acid 500 mg Chewable Tablet PO SCH (10:14)
[2022-01-20] MEDS: Amlodipine 5 MG TAB PO SCH (10:14)
[2022-01-20] MEDS: Methimazole 5 MG TAB PO SCH ×2 (10:26→20:58)
[2022-01-20] MEDS: metroNIDAZOLE 500 MG in Premix Bag 1 BAG IVPB SCH (12:30)
[2022-01-20] MEDS: OLANZapine 2.5 MG TAB PO SCH (20:58)
[2022-01-20] MEDS: Famotidine 20 MG TAB PO SCH (20:58)
[2022-01-20 21:55] LABS: Vancomycin, Trough 15.9 ug/mL
[2022-01-20] MEDS ORDERED: metroNIDAZOLE 500 MG TAB PO SCH (23:00)
[2022-01-21] MEDS: Piperacillin/Tazobactam 3.375 GM in Sodium Chloride 0.9% 100 ML IVPB SCH (06:09)
[2022-01-21] MEDS: Vancomycin HCl 1 GM in Sodium Chloride 0.9% 250 ML 250 ML IVPB SCH (11:05)
[2022-01-21] MEDS: Enoxaparin Sodium 40 MG/0.4 ML SYRINGE SC SCH (11:05)
[2022-01-21] MEDS: Famotidine 20 MG TAB PO SCH (11:06)
[2022-01-21] MEDS: Amlodipine 5 MG TAB PO SCH (11:06)
[2022-01-21] MEDS: Ascorbic Acid 500 mg Chewable Tablet PO SCH (11:06)
[2022-01-21] MEDS: Methimazole 5 MG TAB PO SCH (11:07)
[2022-01-21 12:31] VITALS: BP 128/76; TEMP 98.3
== END 2022-01-21 12:50 | DRG 871 ==
LOC: CSHERS 17:37 → CSHERHOLD 23:56 → CSHTELE 01-16 06:33
PROVIDERS: ADMIT Student in an Organized Health Care Education/Training Program; ATTEND Family Medicine
DX: A41.9 Sepsis, unspecified organism (principal); G93.41 Metabolic encephalopathy; J69.0 Pneumonitis due to inhalation of food and vomit; J96.01 Acute respiratory failure with hypoxia; E87.0 Hyperosmolality and hypernatremia; N39.0 Urinary tract infection, site not specified; F03.90 Unspecified dementia, unspecified severity, without behavioral disturbance, psychotic disturbance, mood disturbance, and anxiety; I10 Essential (primary) hypertension; G93.89 Other specified disorders of brain; E86.0 Dehydration; Z20.822 Contact with and (suspected) exposure to COVID-19; E05.90 Thyrotoxicosis, unspecified without thyrotoxic crisis or storm; Z79.899 Other long term (current) drug therapy; Z68.20 Body mass index [BMI] 20.0-20.9, adult
CPT/HCPCS: 36415; 51701; 71045; 80048; 80053; 80202; 81003; 81015; 82805; 83605; 83735; 84100; 84145; 85025; 87040; 87081; 87086; 87149; 87186; 87449; 87899; 93005; 94760; 96361; 96365; 96366; J0692; J1650; J2543; J3370; J3480; J3490; J7050; J7120; S0028